=== PATIENT | female | born 1975 | race Caucasian/White ===

== ENCOUNTER 2016-11-28 14:28 | Emergency (ER) | payer OTHER ==
[~2016-11-28] VITALS: Ht 160 cm; Wt 100.6 kg
[~2016-11-28 14:28] MED LIST: ATEN1TAB74 PO; BACT800T5 PO; CLIN1CAP5 PO; FLON0.053; IBUP800T23 PO; PHEN37.5 PO
[2016-11-28 14:45] VITALS: BP 142/100; PULSE 74; RESP 16; TEMP 98.7; O2SAT 99
[2016-11-28] MEDS ORDERED: ATEN50TA PO (15:30)
[2016-11-28] MEDS ORDERED: NAPR500 PO (16:08)
--- NOTE | 2016-11-28 16:10 | PD ---
HPI Chief Complaint: Injury Time Seen by Provider: 15:40 Travel History International Travel<30 days: No Contact w/Intl Traveler<30days: No Traveled to known affect area: No History of Present Illness HPI Is a 41-year-old woman who presents to the emergency department complaining of right shoulder pain. 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 She had immediate pain in her right shoulder. She has worsening pain with range of motion, specifically abduction or flexion of the shoulder against resistance. She's been continuing to work but is been having worsening pain with certain movements. She otherwise has been feeling generally well and healthy. Denies any other new or worsening symptoms. 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 Reported Meds & Prescriptions Reported Meds & Active Scripts Active Naprosyn (Naproxen) 500 Mg Tab 500 Mg PO BID PRN Reported Atenolol 50 Mg Tab 50 Mg PO DAILY Review of Systems Except as stated in HPI: all other systems reviewed are Neg Physical Exam Narrative GENERAL: Well-appearing 41 year-old woman, no acute distress. SKIN: Warm and dry. CARDIOVASCULAR: Warm and well perfused. RESPIRATORY: Normal rate and effort. MUSCULOSKELETAL: Normal gross appearance of the right shoulder right upper extremity. She has full active range of motion the shoulder except for maybe a little bit of limitation in abduction above 90. She has pain with internal/ external rotation against resistance as well as abduction and flexion against resistance. Pain is really the anterior lateral shoulder on the joint space. Radial/shoulder/median nerve function is intact. NEUROLOGICAL: Awake and alert. No gross deficits. Data Data Last Documented VS Vital Signs Date Time Temp Pulse Resp B/P Pulse Ox O2 Delivery O2 Flow Rate FiO2 11/28/16 14:45 98.7 74 16 142/100 99 Orders Shoulder, Complete (>2vws) (11/28/16 ) [facility] Medical Decision Making Medical Screen Exam Complete: Yes Emergency Medical Condition: Yes Interpretation(s) Right shoulder x-ray negative Differential Diagnosis Rotator cuff injury, fracture, biceps tendon injury, other Narrative Course Medical decision making INITIAL: This a 41-year-old woman presents to the emergency department with right shoulder injury, suspect rotator cuff injury. She is otherwise well. We' ll check x-ray. Recommend NSAIDs, range of motion exercises, follow-up with orthopedics. Diagnosis Primary Impression: Right shoulder injury Additional Instructions: Take Naprosyn as needed for pain. Continue range of motion exercises as discussed. No weightbearing in the right upper extremities until cleared by orthopedic doctor. Return to the emergency department for any new or worsening symptoms. Med/Other Pt SpecificInfo: Prescription(s) given Scripts Naproxen (Naprosyn)500 Mg [id number] Mg PO BID PRN (PAIN SCALE 1 TO 10) #20 TAB Prov:Kevin Gorman MD 11/28/16 Disposition: 01 DISCHARGE HOME Condition: Stable Kevin Gorman MD Nov 28, 2016 16:10
--- NOTE | 2016-11-28 16:30 | RADHPO ---
EXAM DATE/TIME: 11/28/2016 16:09 [facility] COMPARISON: No previous studies available for comparison. INDICATIONS : Right shoulder injured 8 days ago at work, patient said she felt buyning pain and "pop". MEDICAL HISTORY : None. SURGICAL HISTORY : None. ENCOUNTER: Initial ACUITY: 1 week PAIN SCORE: 3/10 LOCATION: Right upper extremity FINDINGS: Multiple view examination of the right shoulder demonstrates no evidence of fracture or dislocation. The glenohumeral and acromioclavicular joints are maintained. There is normal range of motion betwe en internal and external rotation. Bony mineralization is normal. CONCLUSION: Negative for fracture. MRI may be of benefit. Sergey Oden MD FACR on November 28, 2016 at 16:26 Board Certified Radiologist. This report was verified electronically.
== END 2016-11-28 16:52 | disposition home or self-care (01) ==
LOC: PHED 14:28
DX: S49.91XA Unspecified injury of right shoulder and upper arm, initial encounter (principal); X50.0XXA Overexertion from strenuous movement or load, initial encounter; Y93.F2 Activity, caregiving, lifting; Y99.0 Civilian activity done for income or pay
CPT/HCPCS: 73030; 99283